=== PATIENT | female | born 1990 | race African-American/Black ===

== ENCOUNTER 2019-11-08 12:40 | Emergency (ER) | payer SELFPAY ==
[~2019-11-08] VITALS: Ht 167.6 cm; Wt 64.5 kg
[2019-11-08 13:56] LABS: MICROSCOPIC AUTO
[2019-11-08 13:59] LABS: CULTURE INDICATED? YES
[2019-11-08 15:56] VITALS: BP 114/55
--- NOTE | 2019-11-08 16:15 | NUR ---
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
[2019-11-08 16:16] LABS: HCG UR SG 1.016 (1.003-1.030)
--- NOTE | 2019-11-08 16:20 | NUR ---
PT is not in room at this time. Pt is in [place]
--- NOTE | 2019-11-08 17:04 | NUR ---
Pt still in us.
[2019-11-08 17:38] LABS: ALANINE AMINOTRANSFERASE 14 U/L (12-78); ANION GAP 4 mmol/L (5-15); CALCIUM 9.1 mg/dL (8.5-10.1); CHLORIDE 110 mmol/L (98-107); CREATININE 1.05 mg/dL (0.55-1.02)
[2019-11-08 17:56] LABS: ALKALINE PHOSPHATASE 68 U/L (45-117); BILIRUBIN,TOTAL 0.2 mg/dL (0.2-1.0); TOTAL PROTEIN 7.6 g/dL (6.4-8.2)
[2019-11-08 18:10] LABS: MD YES; MEAN CORPUSCULAR HEMOGLOBIN 28.5 pg (27.0-34.8); MEAN CORPUSCULAR HGB CONC 32.8 g/dL (32.4-35.8); MEAN CORPUSCULAR VOLUME 86.9 fL (80-100); MEAN PLATELET VOLUME 8.5 fL (7.4-10.4); PLATELET COUNT 256 x10^3/uL (130-400); RED CELL DISTRIBUTION WIDTH 13.8 % (9.6-15.2)
[2019-11-08 18:19] LABS: <PLATELET ESTIMATE> ADEQUATE; <PLT MORPHOLOGY> NORMAL PLT MORPH; <RBC MORPHOLOGY> NORMAL; BASOS#(MANUAL) 0.13 x10^3/uL (0-0.1); BASOS% (MANUAL) 2 % (0-1); EOS#(MANUAL) 0.19 x10^3/uL (0.0-0.4); EOS% (MANUAL) 3 % (1-7); LYMPH#(MANUAL) 2.65 x10^3/uL (1-3.4); LYMPHS% (MANUAL) 42 % (22-44); MONOS#(MANUAL) 0.32 x10^3/uL (0.3-2.7); MONOS% (MANUAL) 5 % (2-9); REACTIVE LYMPHS # (MANUAL) 0.06 x10^3/uL (0-0); REACTIVE LYMPHS % (MANUAL) 1 % (0-0); SEG#(MANUAL) 2.96 x10^3/uL (1.8-6.8); SEGS% (MANUAL) 47 % (42-75)
--- NOTE | 2019-11-08 19:29 | NUR ---
Patient/Caregiver given discharge instructions and they have confirmed that they understand the instructions. Patient ambulatory with steady gait.
== END 2019-11-08 19:30 | disposition home or self-care (01) ==
LOC: ED 18:41
DX: O26.891 Other specified pregnancy related conditions, first trimester (principal); Z32.01 Encounter for pregnancy test, result positive; R10.13 Epigastric pain; R10.12 Left upper quadrant pain; Z3A.01 Less than 8 weeks gestation of pregnancy
CPT/HCPCS: 36415; 76700; 76801; 80053; 81001; 81025; 83690; 84702; 85025; 86901; 87077; 87086; 87186; 99284

== ENCOUNTER 2019-11-11 16:38 | Emergency (ER) | payer SELFPAY | END 2019-11-11 17:14 | disposition left against medical advice (07) | LOC: ED 17:03 | DX: Z53.21 Procedure and treatment not carried out due to patient leaving prior to being seen by health care provider (principal) ==